=== PATIENT | male | born 1935 | race Caucasian/White ===

== ENCOUNTER 2021-06-25 23:05 | Inpatient (IN) | payer OTHER ==
[~2021-06-25] VITALS: Ht 180.3 cm; Wt 78.9 kg
[2021-06-25 23:13] VITALS: BP 146/74
[2021-06-25 23:39] LABS: ABSOLUTE BASOPHILS 0.1 thou/uL (0.0-0.2); ABSOLUTE MONOCYTES 1.2 thou/uL (0.0-1.2); ABSOLUTE NEUTROPHILS 7.4 thou/uL (1.6-8.1); BASOPHILS 0.6 %; EOSINOPHILS 0.1 %; HEMATOCRIT 42.1 % (42.0-52.0); HEMOGLOBIN 13.9 gm/dL (14.0-18.0); MCH 26.5 pg (26.0-34.0); MCHC 32.9 g/dL (28.0-37.0); MCV 80.5 fL (80.0-100.0); MONOCYTES 12.7 %; MPV 8.5 fl. (7.2-11.1); NUCLEATED RBCS 0 /100WBC; PLATELET COUNT* 200 thou/uL (150-400); POLYS 76.6 %; RBC 5.23 mil/uL (4.50-6.00); RDW-CV 15.2 % (10.5-14.5); WBC 9.6 thou/uL (4.0-11.0)
[2021-06-25 23:45] LABS: CALCIUM 8.2 mg/dL (8.5-10.1); CREATININE 1.5 mg/dL (0.6-1.3)
[2021-06-25 23:49] LABS: ALBUMIN 3.1 g/dL (3.4-5.0); MAGNESIUM 2.1 mg/dL (1.8-2.4); TOTAL BILIRUBIN 0.3 mg/dL (<0.1-1.0); TOTAL PROTEIN 7.1 g/dL (6.4-8.2)
[2021-06-26 00:18] LABS: URINE BILIRUBIN NEGATIVE (Negative); URINE BLOOD 1+ (Negative); URINE CLARITY SL HAZY; URINE COLOR DARK YELLOW; URINE GLUCOSE-RANDOM NEGATIVE (Negative); URINE KETONES TRACE (Negative); URINE LEUKOCYTES-REFLEX NEGATIVE (Negative); URINE NITRITE-REFLEX NEGATIVE (Negative); URINE PROTEIN 2+ (Negative); URINE SPECIFIC GRAVITY >= 1.030 (1.005-1.030); URINE UROBILINOGEN 0.2 E.U./dl (0.2-1.0)
[2021-06-26 00:44] LABS: AMORPHOUS URATES Moderate /LPF (None Seen); BACTERIA-REFLEX >30 Many /HPF (None Seen); CELLULAR CASTS 4-10 Moderate /LPF (None Seen); COARSE GRANULAR CASTS 4-10 Moderate /LPF (None Seen); FINE GRANULAR CASTS 4-10 Moderate /LPF (None Seen); HYALINE CASTS 0-3 Few /LPF (None Seen); MUCUS >6 Heavy strn/LPF (None Seen); SQUAMOUS 0-3 Few /LPF (0-3); TRANSITIONAL EPITHEL CELL 0-3 Few /LPF (None Seen); WBC CLUMPS Few (None Seen)
[2021-06-26 01:30] VITALS: BP 109/49
[2021-06-26 02:09] VITALS: BP 112/52
--- NOTE | 2021-06-26 06:49 | NUR ---
NEW ADMIT FOR COVID, ON 2L. A & O X4. NO SKIN ISSUES. INTERMITTENT NAUSEA. REMAINS FREE FROM INJURY. ASSESSMENT AND ADMISSION COMPLETE.
--- NOTE | 2021-06-26 11:11 | EKG ---
[place] [address] ELECTROCARDIOGRAM REPORT Name: CLEMENTINA ZAVALETA Room: [address] ADM IN [facility].#: [id number] Admission: 06/26/21 Attend Phys: Og Burdick, Discharge: Date of : 39 Date of Service: 06/25/21 2319 Report #: [id number] THIS REPORT FOR: //name// [facility] ED Test Date: 2021-06-25 Test Time: 23:19:16 Pat Name: CLEMENTINA ZAVALETA Department: Room: [facility] Gender: M Control Supervisor: : 1935 Requested By: Sherry Ram Order Number: [id number] MD: Jeff Kang Measurements Intervals [place] Rate: 91 P: 56 MD: 200 QRS: 88 QRSD: 104 T: 3 QT: 350 QTc: 431 Interpretive Statements Sinus rhythm Borderline right axis deviation No previous ECG available for comparison Electronically Signed On 06-26-2021 11:10:44 FRUIT [employer]YER by Jeff Kang [email or web address] <ELECTRONICALLY SIGNED> By: Jeff Knag MD, FACC 06/26/21 1110 2319 2319 Jeff Kang MD, [facility] /EPI
[2021-06-26 11:15] VITALS: BP 116/53
[2021-06-26 16:30] VITALS: BP 135/62
--- NOTE | 2021-06-26 17:35 | NUR ---
CM FOLLOWUP ASSESSMENT COMPLETED WITH PT'S (DEBBIE [phone]). PT LIVES WITH . PT HAS NO HISTORY OF ADL OR DME SUPPORT. TO TRANSPORT PT UPON DC. PT HAS NO HISTORY OF SKILLED OR REHAB SERVICES. PT HAD HH WITH UNKNOWN PROVIDER IN 2014 AFTER A HIP REPLACEMENT. CM TO CONTINUE TO FOLLOW.
[2021-06-26 21:10] VITALS: BP 110/66
[2021-06-27 00:50] VITALS: BP 107/58
[2021-06-27 04:31] LABS: ABSOLUTE LYMPHOCYTES 0.9 thou/uL (0.8-5.3); ABSOLUTE MONOCYTES 0.8 thou/uL (0.0-1.2); ABSOLUTE NEUTROPHILS 5.5 thou/uL (1.6-8.1); BASOPHILS 0.3 %; HEMATOCRIT 38.9 % (42.0-52.0); HEMOGLOBIN 12.8 gm/dL (14.0-18.0); LYMPHOCYTES 12.5 %; MCH 26.6 pg (26.0-34.0); MCHC 32.8 g/dL (28.0-37.0); MCV 81.1 fL (80.0-100.0); MONOCYTES 10.7 %; NUCLEATED RBCS 0 /100WBC; PLATELET COUNT* 193 thou/uL (150-400); POLYS 76.5 %; WBC 7.2 thou/uL (4.0-11.0)
[2021-06-27 04:35] VITALS: BP 118/56
[2021-06-27 04:59] LABS: CALCIUM 7.7 mg/dL (8.5-10.1); POTASSIUM 4.2 mmol/L (3.5-5.1)
--- NOTE | 2021-06-27 05:17 | NUR ---
PT AO X4, NSR WITH PERIODS OF BRADYCARDIA ON TELEMONITOR, PT ON 2.5 L PER NC SATTING APPROPRIATELY. IVF RUNNING PER ORDER WITHOUT PROBLEM. CALL LIGHT IN REACH, BED ALARM ON FOR PT SAFETY.
[2021-06-27 08:00] VITALS: BP 127/66; BP 91/45
[2021-06-27 12:12] VITALS: BP 115/66
[2021-06-27 16:00] VITALS: BP 122/60
--- NOTE | 2021-06-27 17:53 | NUR ---
CM FOLLOWUP PT NOT MEDICALLY CLEAR TO DC. POSSIBLE DC ON 06/29/21. IF DC, PT TO DC HOME WITH . [facility][phone][facility]
[2021-06-27 20:50] VITALS: BP 124/63
[2021-06-27 20:59] LABS: INFLUENZA A ANTIGEN Negative (Negative); INFLUENZA B ANTIGEN Negative (Negative)
[2021-06-28] VITALS: BP 114/62
[2021-06-28 04:00] VITALS: BP 142/54
--- NOTE | 2021-06-28 04:59 | NUR ---
PT ALERT AND ORIENTED, 1L-NC, UP STANDBY ASSIST, REPORTS NO NAUSEA OR VOMTING. HE IS INTERESTED IN EATING SOLID FOODS THIS MORNING. HE RECEIVED ALL MEDS SCHEDULED. WILL CONTINUE TO MONITOR.
[2021-06-28 08:41] VITALS: BP 145/74
[2021-06-28 12:00] VITALS: BP 119/67
[2021-06-28 16:41] VITALS: BP 105/44
[2021-06-28 20:00] VITALS: BP 101/35
[2021-06-29] VITALS: BP 10/42
[2021-06-29 04:00] VITALS: BP 123/58
--- NOTE | 2021-06-29 04:47 | NUR ---
PT O2 SAT HIGHTER 80'S WHILE ASLEEP. NOW ON 2L-NC OVERNIGHT TO MAINTAIN O2 AT 97% WHILE SLEEPING. HE IS ALERT AND ORIENTED, UP STANDBY. TOLERATING FLUIDS WELL, NO ISSUES WITH PAIN OR NAUSEA. HE HAS SLEPT WELL ALL SHIFT. WILL CONTINUE TO MONITOR.
[2021-06-29 08:30] VITALS: BP 127/50
[2021-06-29 12:00] VITALS: BP 136/55
[2021-06-29] MEDS ORDERED: DOXYCYCLINE 10100 MG PO (12:39)
[2021-06-29] MEDS ORDERED: PROTONIX40 M2 PO (12:39)
[2021-06-29] MEDS ORDERED: DEXAMETHASONE1 MG PO (12:39)
[2021-06-29 17:35] VITALS: BP 136/55
--- NOTE | 2021-06-29 18:01 | NUR ---
I ASSUMED CARE OF THE PATIENT AT 0700. HE IS ALERT AND ORIENTED X4 AND IS UP WITH SBA TO THE BATHROOM. BED IS IN THE LOW LOCKED POSITION AND CALL LIGHT IS IN REACH. PATIENT NEEDS ARE MET DURING HOURLY ROUNDING AND PAIN IS DENIED. HE IS TITRATED TO ROOM AIR AND SATING ABOVE 95%. IS CONTACTED IN REGARDS TO DISCHARGE TODAY. SON IN LAW WILL SALES INCENTIVE ANALYST. REST AND EXERCISE IS COMPLETED AND PATIENT WILL NOT NEED OXYGEN AT HOME. BLOOD GLUCOSE IS MONITORED. WILL CONTINUE TO MONITOR.
== END 2021-06-29 18:09 | disposition home health service (06) | DRG 177 ==
LOC: M.ERS 23:05 → M.ORTHSURG 06-26 01:02 → M.TBA-ER 06-26 01:02 → M.ORTHSURG 06-26 01:58
PROVIDERS: Emergency Medicine; ADMIT Internal Medicine; ATTEND Internal Medicine
PROC: XW033E5 Introduction of Remdesivir Anti-infective into Peripheral Vein, Percutaneous Approach, New Technology Group 5 (ICD-10-PCS; principal; 2021-06-27)
DX: U07.1 COVID-19 (principal); J96.01 Acute respiratory failure with hypoxia; J12.82 Pneumonia due to coronavirus disease 2019; N39.0 Urinary tract infection, site not specified; N17.9 Acute kidney failure, unspecified; E86.0 Dehydration; Z90.49 Acquired absence of other specified parts of digestive tract; Z79.899 Other long term (current) drug therapy